=== PATIENT | male | born 2000 | race Caucasian/White ===

== ENCOUNTER 2024-03-06 11:41 | Emergency (ER) | payer MEDICAID, OTHER ==
[2024-03-06] MEDS ORDERED: Fluor-I-Strip/Ful-Flo OP ONE (12:14)
[2024-03-06] MEDS ORDERED: Eye-Stream Solution ONE (12:14)
[2024-03-06] MEDS ORDERED: TETRACAINE 0.5% STERI-UNIT SOL OP ONE (12:14)
[2024-03-06 12:18] VITALS: RESP 20; TEMP 98.3
[2024-03-06] MEDS: Fluor-I-Strip/Ful-Flo OP ONE (12:34)
[2024-03-06] MEDS: TETRACAINE 0.5% STERI-UNIT SOL OP STA (12:34)
[2024-03-06] MEDS: Eye-Stream Solution OP ONE (12:34)
[2024-03-06] MEDS ORDERED: Ocuflox OPHTHALMIC 5 ML OP ONE (12:43)
[2024-03-06] MEDS: Ocuflox OPHTHALMIC 5 ML OP STA (12:45)
[2024-03-06 12:51] VITALS: O2SAT 99
--- NOTE | 2024-03-06 13:00 | ERPHSYRPT ---
- History of Present Illness Time Seen by Provider: 03/06/24 11:43 Source: patient Exam Limitations: no limitations Patient Subjective Stated Complaint: Pt states "I was working in the garage and a piece of metal flew back and hit my right eye and I felt a pop and a bunch of liquid ran down my face and now it is blurry with a couple of dark spots." Triage Nursing Assessment: Pt presented alert and oriented X 3, skin pwd. Pt ambulates with an upright steady gait, able to speak in clear full sentences. PT right eye is watery and red. Physician History: 23 years old up-to-date with tetanus presented in the ER after he was working on a ball bearing with chestful and a hammer, a piece of metal flew back into his right eye almost 30 minutes ago. Patient reports feeling popping sensation and watering and afterwards having blurry vision to hand movements with no eyeball pain. Denies any headache. Patient has mild conjunctival injection. Pupil round, very sluggish, cloudiness the back of high, no retinal visible. Intact range of motion of eyeball. Intact globe contour. Is given tetracaine and examined with fluorescein with uptake in the pupillary area. No obvious visible foreign body. Started on ofloxacin eyedrops. Called [facility], discussed with Dr. Dempsey ophthalmology, reviewed history, exam findings, agreed with transfer for further evaluation. Plan discussed with patient and family understand and agree with it. Patient will go POV to [facility] as is going to drive him. Allergies/Adverse Reactions: No Known Drug Allergies Allergy (Verified 07/25/16 11:43) Home Medications: No Reportable Medications [No Reported Medications] 03/06/24 [History] Hx Tetanus, Diphtheria Vaccination/Date Given: Yes Hx Influenza Vaccination/Date Given: No Hx Pneumococcal Vaccination/Date Given: No Immunizations Up to Date: No Travel Risk - International Travel Have you traveled outside of the country in past 3 weeks: No - Emerging Infectious Disease Are you exhibiting symptoms associated with any current EIDs: No - Review of Systems Constitutional: No Symptoms Eyes: Discharge, Eye Pain, Eye Redness, Photophobia, Vision Changes Ears, Nose, & Throat: No Symptoms Respiratory: No Symptoms Cardiac: No Symptoms Musculoskeletal: No Symptoms Neurological: No Symptoms - Past Medical History Pertinent Past Medical History: No Neurological History: No Pertinent History Cardiac History: No Pertinent History Respiratory History: No Pertinent History Endocrine Medical History: No Pertinent History Musculoskeletal History: No Pertinent History - Past Surgical History Past Surgical History: No Other Surgical History: TONSIL Significant Family History: no pertinent family hx - Social History Smoking Status: Never smoker Exposure to second hand smoke: No Drug Use: none Patient Lives Alone: No - Social Determinants of Health Will the patient participate in the screening: Declined to provide - Nursing Vital Signs Nursing Vital Signs: Initial Vital Signs Temperature 98.3 F 03/06/24 12:08 Pulse Rate 57 L 03/06/24 12:08 Respiratory Rate 20 03/06/24 12:08 Blood Pressure 120/71 03/06/24 12:08 O2 Sat by Pulse Oximetry 100 03/06/24 12:08 Pain Scale Pain Intensity 0 - Physical Exam General Appearance: no apparent distress, alert Vision Acuity Degree Evaluation Phase: Uncorrected Vision Acuity Right Eye: none Vision Acuity Left Eye: 20/30 Eye Exam: right eye: abnormal pupil, A-V nicking, corneal abrasion, vision changes, left eye: normal inspection, PERRL, EOMI Ears, Nose, Throat Exam: normal ENT inspection, TMs normal, pharynx normal, moist mucous membranes Neck Exam: normal inspection, non-tender, supple, full range of motion Respiratory Exam: normal breath sounds, lungs clear Cardiovascular Exam: regular rate/rhythm, normal heart sounds Extremity Exam: normal inspection Neurologic: alert, oriented x 3, cooperative Skin Exam: normal color SpO2 Interpretation: normal SpO2: 99 O2 Delivery: Room Air Ordered Tests: Medication Summary Discontinued Medications Generic Name Dose Route Start Last Admin Trade Name Harshad PRN Reason Stop Dose Admin Eye Irrigation Solution Confirm 03/06/24 12:14 Sodium/Potassium/Cristopher/Magnesium 30 Ml Eye Wash Administered 03/06/24 12:15 Dose 30 ml .ROUTE .STK-MED ONE Eye Irrigation Solution 15 ml 03/06/24 12:33 03/06/24 12:34 Sodium/Potassium/Cristopher/Magnesium 30 Ml Eye Wash OP 03/06/24 12:34 15 ml STAT ONE Administration Fluorescein Sodium Confirm 03/06/24 12:14 Fluorescein Sodium 1 Mg/Strip Strip Administered 03/06/24 12:15 Dose 1 mg OP .STK-MED ONE Fluorescein Sodium 1 mg 03/06/24 12:33 03/06/24 12:34 Fluorescein Sodium 1 Mg/Strip Strip OP 03/06/24 12:34 1 mg STAT ONE Administration Ofloxacin 5 ml 03/06/24 12:39 03/06/24 12:45 Ofloxacin 0.3% Opth 5 Ml Eye Drops OP 03/06/24 12:40 5 ml Q30MIN STA Administration Ofloxacin Confirm 03/06/24 12:43 Ofloxacin 0.3% Opth 5 Ml Eye Drops Administered 03/06/24 12:44 Dose 5 ml OP .STK-MED ONE Tetracaine HCl Confirm 03/06/24 12:14 Tetracaine Hcl/Pf 4 Ml Bottle Administered 03/06/24 12:15 Dose 4 ml OP .STK-MED ONE Tetracaine HCl 4 ml 03/06/24 12:33 03/06/24 12:34 Tetracaine Hcl/Pf 4 Ml Bottle OP 03/06/24 12:34 4 ml STAT STA Administration - Progress Progress: unchanged Progress Note: 03/06/24 13:01 23 years old up-to-date with tetanus presented in the ER after he was working on a ball bearing with chestful and a hammer, a piece of metal flew back into his right eye almost 30 minutes ago. Patient reports feeling popping sensation and watering and afterwards having blurry vision to hand movements with no eyeball pain. Denies any headache. Patient has mild conjunctival injection. Pupil round, very sluggish, cloudiness the back of high, no retinal visible. Intact range of motion of eyeball. Intact globe contour. Is given tetracaine and examined with fluorescein with uptake in the pupillary area. No obvious visible foreign body. Started on ofloxacin eyedrops. Called [facility], discussed with Dr. Dempsey ophthalmology, reviewed history, exam findings, agreed with transfer for further evaluation. Plan discussed with patient and family understand and agree with it. Patient will go POV to [facility] as is going to drive him. Counseled pt/family regarding: diagnosis, need for follow-up Medical Desision Making - Independent Historian Additional History obtained from: Spouse - Discussion of managment Care discussed with:: specialist ([facility] [employer] [facility]) Reviewed:: Need for additional workup Agreed on:: Treatment plan Will see patient: in ED - Diagnostic Testing Diagnostic test were ordered, analyzed, and reviewed by me: No - Risk of complications The pt has a mod risk of morbidity or mortality based on: Need for prescription drug management - Departure Departure Disposition: Transfer Clinical Impression: Injury of eyeball Condition: Stable Critical Care Time: No Referrals: DOCTOR,NO FAMILY [Primary Care Provider] - Follow up/PCP as directed
[2024-03-06 13:03] VITALS: BP 97/65; PULSE 51
== END 2024-03-06 13:27 | disposition short-term general hospital (02) ==
LOC: ED 11:41
DX: S05.8X1A Other injuries of right eye and orbit, initial encounter (principal); W20.8XXA Other cause of strike by thrown, projected or falling object, initial encounter
CPT/HCPCS: 99284; A9270-GY